=== PATIENT | female | born 1935 | race Caucasian/White ===

== ENCOUNTER → 2017-03-25 | Outpatient (CLI) | payer MEDICARE ==
[~2017-03-25] MED LIST: ALBU18HF INH; ALLO100T30 PO; AMLO10TA2 PO; AZIT500T77 PO; CEFD300C37 PO; COLC0.6T37 PO; MIRT15TA4 PO; TRAZ100T15 PO
== END | disposition home or self-care (01) ==
LOC: CFH 10:26
PROVIDERS: ATTEND Internal Medicine
DX: R91.8 Other nonspecific abnormal finding of lung field (principal)
CPT/HCPCS: 71250

== ENCOUNTER → 2017-07-29 | Outpatient (CLI) | payer MEDICARE ==
[~2017-07-29] MED LIST changes: +AZIT500T5 PO; -AZIT500T77 PO
== END | disposition home or self-care (01) ==
LOC: CFH 10:01
PROVIDERS: ATTEND Internal Medicine Critical Care Medicine
DX: J98.11 Atelectasis (principal); R91.8 Other nonspecific abnormal finding of lung field
CPT/HCPCS: 71250